=== PATIENT | female | born 1960 | race Caucasian/White ===

== ENCOUNTER → 2016-05-18 | Outpatient (CLI) | payer BC ==
[~2016-05-18] MED LIST: ANTIVERT 25MG25 MG PO; ASPIRIN 81M81 MG/TA2 PO; CELLCEPT 5500 MG/TAB PO; LIPITOR20 MG PO; PHENERGAN25 MG RC; PREDNISONE1 MG PO; SYNTHROID0.125 MG/T PO; VALIUM 5MG T5 MG/TAB PO; ZOFRAN 4MG T4 MG/TAB PO
== END ==
LOC: MC.RAD 04-20 11:00
DX: Z12.31 Encounter for screening mammogram for malignant neoplasm of breast (principal)

== ENCOUNTER → 2016-06-29 | Outpatient (CLI) | payer BC ==
[2016-06-29 09:58] LABS: BASO % 0.7 % (0.0-2.0); EOS # 0.2 (0.0-0.7); EOS % 3.3 % (0-4.0); GRAN # 2.9 (1.4-6.5); GRAN % 64.8 % (42.2-75.2); HEMATOCRIT 38.8 % (37.0-47.0); HEMOGLOBIN 12.5 g/dl (12.5-16.0); LYMPH # 1.1 (1.2-3.4); LYMPH % 24.3 % (20.0-51.0); MEAN CELL VOLUME 90 fl (80.0-100.0); MEAN CORPUSCULAR HEMOGLOBIN 29 pg (27.0-31.0); MEAN CORPUSCULAR HGB CONC 32 g/dl (33.0-37.0); MEAN PLATELET VOLUME 9.1 fl (7.4-10.4); MONO # 0.3 (0.1-0.6); MONO % 6.2 % (1.7-9.3); PLATELET COUNT 226 K/mm3 (130-400); REDCELL DISTRIBUTION WIDTH-CV 13.3 % (11.5-14.5); WHITE BLOOD COUNT 4.5 K/mm3 (4.8-10.8)
[2016-06-29 10:08] LABS: ADJUSTED CALCIUM 9.2 mg/dL (8.4-10.2); BILIRUBIN,TOTAL 0.7 mg/dL (0.0-1.0); CALCIUM 9.2 mg/dL (8.4-10.2); CREATININE, serum 0.92 mg/dL (0.52-1.25); MAGNESIUM 2.1 mg/dL (1.6-2.3); POTASSIUM 4.3 mmol/L (3.4-5.0); TOTAL PROTEIN 7.8 gm/dL (6.4-8.2)
[2016-06-29 10:36] LABS: THYROID STIMULATING HORMONE 2.48 uIU/mL (0.465-4.680)
[2016-06-29 10:50] LABS: ERYTHROCYTE SEDIMENTATION RATE 19 mm/hr (0-30)
[2016-06-29 11:03] LABS: PH 6 (5-8); SQUAMOUS EPITHELIAL None Seen /hpf; URINE APPEARANCE Clear; URINE BACTERIA None Seen /hpf; URINE BILIRUBIN Negative (NEGATIVE); URINE BLOOD 1+ (NEGATIVE); URINE COLOR Yellow; URINE GLUCOSE Negative (NEGATIVE); URINE KETONE Negative (NEGATIVE); URINE UROBILINOGEN Negative (NEGATIVE)
[2016-06-29 23:25] LABS: ALBUMIN/CREATININE RATIO URINE 113.3 mg/g (0.0-29.0)
== END ==
LOC: COL.LAB 08:51
PROVIDERS: Internal Medicine
DX: Z00.00 Encounter for general adult medical examination without abnormal findings (principal); N18.2 Chronic kidney disease, stage 2 (mild); I10 Essential (primary) hypertension; D63.1 Anemia in chronic kidney disease; M32.14 Glomerular disease in systemic lupus erythematosus

== ENCOUNTER → 2018-01-08 | Outpatient (CLI) | payer BC | LOC: MC.RAD 10:53 | DX: Z12.31 Encounter for screening mammogram for malignant neoplasm of breast (principal) ==

== ENCOUNTER → 2019-04-07 | Outpatient (CLI) | payer BC ==
[2019-04-07 09:02] LABS: COLLECTION METHOD CLEAN CATCH
[2019-04-07 09:06] LABS: BASO % 0.5 % (0.0-2.0); EOS # 0.1 (0.0-0.7); EOS % 2.6 % (0-4.0); GRAN # 2.9 (1.4-6.5); GRAN % 68.4 % (42.2-75.2); HEMATOCRIT 39.2 % (37.0-47.0); HEMOGLOBIN 12.5 g/dl (12.5-16.0); LYMPH % 22.9 % (20.0-51.0); MEAN CELL VOLUME 93 fl (80.0-100.0); MEAN CORPUSCULAR HEMOGLOBIN 30 pg (27.0-31.0); MEAN CORPUSCULAR HGB CONC 32 g/dl (33.0-37.0); MONO # 0.2 (0.1-0.6); MONO % 5.4 % (1.7-9.3); PLATELET COUNT 195 K/mm3 (130-400); REDCELL DISTRIBUTION WIDTH-CV 13.6 % (11.5-14.5)
[2019-04-07 09:19] LABS: ALBUMIN 4.2 gm/dL (3.5-5.0); BILIRUBIN,TOTAL 0.4 mg/dL (0.0-1.0); CALCIUM 9.1 mg/dL (8.4-10.2); CHOLESTEROL RISK RATIO 3.4; CREATININE, serum 0.89 (0.52-1.25); MAGNESIUM 2.1 mg/dL (1.6-2.3); POTASSIUM 4.3 mmol/L (3.4-5.0); TOTAL PROTEIN 7.9 gm/dL (6.4-8.2)
[2019-04-07 09:29] LABS: PH 6 (5-8); SQUAMOUS EPITHELIAL 0-2 /hpf; URINE APPEARANCE Clear; URINE BACTERIA None Seen /hpf; URINE BILIRUBIN Negative (NEGATIVE); URINE BLOOD 1+ (NEGATIVE); URINE COLOR Yellow; URINE GLUCOSE Negative (NEGATIVE); URINE KETONE Negative (NEGATIVE); URINE LEUKOCYTE ESTERASE Trace (NEGATIVE); URINE NITRATE Negative (NEGATIVE); URINE PROTEIN(semi-quant) Negative (NEGATIVE); URINE UROBILINOGEN Negative (NEGATIVE)
[2019-04-07 09:37] LABS: ERYTHROCYTE SEDIMENTATION RATE 26 mm/hr (0-30)
[2019-04-07 09:48] LABS: THYROID STIMULATING HORMONE 2.01 uIU/mL (0.465-4.680)
[2019-04-07 21:53] LABS: URINE MICROALBUMIN 10.1 mg/dL (0.0-1.7)
== END ==
LOC: COL.LAB 08:34
PROVIDERS: Internal Medicine
DX: Z00.00 Encounter for general adult medical examination without abnormal findings (principal); Z12.11 Encounter for screening for malignant neoplasm of colon; I11.9 Hypertensive heart disease without heart failure; N18.2 Chronic kidney disease, stage 2 (mild); D63.1 Anemia in chronic kidney disease; M32.14 Glomerular disease in systemic lupus erythematosus

== ENCOUNTER → 2019-05-22 | Outpatient (CLI) | payer BC | LOC: MC.RAD 08:30 | DX: Z12.31 Encounter for screening mammogram for malignant neoplasm of breast (principal) ==

== ENCOUNTER → 2020-11-22 | Outpatient (CLI) | payer BC | LOC: MC.RAD 10-21 07:00 | DX: Z12.31 Encounter for screening mammogram for malignant neoplasm of breast (principal) ==

== ENCOUNTER → 2023-03-12 | Outpatient (CLI) | payer BC ==
[2023-03-12 16:07] LABS: COLLECTION METHOD CLEAN CATCH
[2023-03-12 16:19] LABS: URINE APPEARANCE Cloudy (CLEAR/HAZY); URINE COLOR Yellow (YELLOW)
[2023-03-12 16:20] LABS: SQUAMOUS EPITHELIAL 0-2 /hpf (0-10); URINE BACTERIA Many /hpf (NONE SEEN); URINE BLOOD TRACE-LYSED (NEGATIVE); URINE GLUCOSE Negative (NEGATIVE); URINE KETONE Negative (NEGATIVE); URINE NITRATE Positive (NEGATIVE); URINE PROTEIN(semi-quant) TRACE (NEGATIVE); URINE RBC 0-2 /hpf (0-2); URINE UROBILINOGEN 0.2 E.U/dL (0.2-1.0)
[2023-03-12 16:21] LABS: URINE WBC 20-50 /hpf (0-2)
== END ==
LOC: COL.LAB 15:52
PROVIDERS: Internal Medicine
DX: N39.0 Urinary tract infection, site not specified (principal)

== ENCOUNTER → 2023-07-26 | Outpatient (CLI) | payer BC | LOC: MC.RAD 11:15 | DX: Z12.31 Encounter for screening mammogram for malignant neoplasm of breast (principal) ==